=== PATIENT | male | born 1960 | race Caucasian/White ===

== ENCOUNTER 2020-01-31 11:05 | Inpatient (IN) | payer MEDICAID ==
[~2020-01-31] VITALS: Ht 180.3 cm; Wt 95.5 kg
[~2020-01-31 11:05] MED LIST: AMOX125S7; LORA0.5T11 PO; [UNRECOGNIZED DRUG - CODE]
[2020-01-31] MEDS ORDERED: SODIUM CHLORIDE 0.9% 500 ML IVB ONE (11:53)
[2020-01-31] MEDS ORDERED: PANTOPRAZOLE 40 MG/10 ML VIAL INJ IV STA (11:53)
[2020-01-31] MEDS ORDERED: ONDANSETRON HCL 4 MG/2 ML VIAL IV ONE (12:00)
[2020-01-31] MEDS ORDERED: MORPHINE SULFATE 4 MG/ML SYR/VIAL IV ONE (12:00)
[2020-01-31 12:18] LABS: Urine Bacteria NONE SEEN /hpf (None Seen); Urine Blood Negative /uL (Negative); Urine Mucus FEW (None Seen); Urine Specific Gravity 1.024 (1.001-1.035); Urine Sperm PRESENT /hpf (None Seen); Urine WBC 2 /hpf (0 - 3)
[2020-01-31 12:20] LABS: Basophils # (auto) 0.1 10 ^3/uL (0-0.2); Basophils % (auto) 0.3 % (0.0-2.0); Eosinophils # (auto) 0 10 ^3/uL (0-0.8); Eosinophils % (auto) 0.1 % (0.0-7.0); Hemoglobin 11.8 g/dL (13.5-17.5); Lymphocytes # (auto) 1.2 10 ^3/uL (0.4-5.4); Lymphocytes % (auto) 6.1 % (10.0-50.0); Mean Corpuscular Hemoglobin 30.1 pg (28.0-32.0); Mean Corpuscular Hgb Conc. 33.6 g/dL (32.0-36.0); Mean Corpuscular Volume 89.7 fL (80.0-100.0); Monocytes # (auto) 0.9 10 ^3/uL (0-1.3); Monocytes % (auto) 4.8 % (0.0-12.0); Neutrophils # (auto) 17.2 10 ^3/uL (1.6-8.6); Neutrophils % (auto) 88.7 % (37.0-80.0); Platelet Count (auto) 305 10^3/uL (140-450); Red Cell Distribution Width 13.3 % (11.8-14.3); White Blood Cell 19.4 10^3/uL (4.4-10.8)
[2020-01-31 12:45] LABS: Albumin 3.2 g/dL (3.4-5.0); BUN/Creatinine Ratio 35.4; Calcium 8.6 mg/dL (8.5-10.1); Potassium 3.9 mmol/L (3.5-5.1)
[2020-01-31 12:47] LABS: Bilirubin, Total 0.7 mg/dL (0.2-1.0); Total Protein 6.6 g/dL (6.4-8.2)
[2020-01-31] MEDS ORDERED: MORPHINE SULF INJ 2 MG/ML SYRINGE 1ML IV PRN (14:15)
[2020-01-31] MEDS ORDERED: SODIUM CHLORIDE 0.9% 1,000 ML IV ONE (14:15)
[2020-01-31] MEDS ORDERED: NITROGLYCERIN 0.4 MG SL TAB SL PRN (14:15)
[2020-01-31] MEDS: SODIUM CHLORIDE 0.9% 1,000 ML IV SCH ×2 (16:04→21:44)
[2020-01-31 16:09] VITALS: BP 130/81
[2020-01-31 17:00] VITALS: BP 130/81
[2020-01-31] MEDS: MORPHINE SULF INJ 2 MG/ML SYRINGE 1ML IV PRN (17:23)
[2020-01-31] MEDS ORDERED: cefTRIAXone 1GM/50ML D5W 50 ML IV ONE (17:45)
[2020-01-31] MEDS ORDERED: cefTRIAXone 1GM/50ML D5W 50 ML IV SCH (17:45)
[2020-01-31] MEDS: PANTOPRAZOLE 40 MG/10 ML VIAL INJ IV SCH (21:37)
[2020-01-31] MEDS: diphenhdrAMINE HCL 25 MG CAP PO PRN (21:37)
[2020-01-31 21:38] VITALS: BP 118/75
[2020-01-31] MEDS: metroNIDAZOLE 500MG/100ML 100 ML IV SCH (21:38)
[2020-02-01] MEDS: MORPHINE SULF INJ 2 MG/ML SYRINGE 1ML IV PRN ×3 (01:13→21:13)
[2020-02-01] MEDS: ONDANSETRON HCL 4 MG/2 ML VIAL IV PRN ×2 (01:18→09:55)
[2020-02-01 05:07] VITALS: BP 133/67
[2020-02-01 05:13] LABS: Eosinophils # (auto) 0.1 10 ^3/uL (0-0.8); Eosinophils % (auto) 0.6 % (0.0-7.0); Monocytes % (auto) 6.4 % (0.0-12.0); Red Cell Distribution Width 13.4 % (11.8-14.3)
[2020-02-01 05:15] LABS: Basophils # (auto) 0 10 ^3/uL (0-0.2); Basophils % (auto) 0.2 % (0.0-2.0); Lymphocytes # (auto) 4.4 10 ^3/uL (0.4-5.4); Lymphocytes % (auto) 27.5 % (10.0-50.0); Mean Corpuscular Hemoglobin 30.3 pg (28.0-32.0); Mean Corpuscular Hgb Conc. 33.4 g/dL (32.0-36.0); Mean Corpuscular Volume 90.7 fL (80.0-100.0); Neutrophils # (auto) 10.4 10 ^3/uL (1.6-8.6); Neutrophils % (auto) 65.3 % (37.0-80.0); Nucleated Red Blood Cells % 0.1 %; Platelet Count (auto) 236 10^3/uL (140-450); Red Blood Cells 2.65 10^6/uL (4.5-5.90); White Blood Cell 15.9 10^3/uL (4.4-10.8)
[2020-02-01 05:35] LABS: Potassium 4.1 mmol/L (3.5-5.1)
[2020-02-01 05:40] LABS: Albumin 2.6 g/dL (3.4-5.0); BUN/Creatinine Ratio 27.3; Bilirubin, Total 0.7 mg/dL (0.2-1.0); Calcium 7.7 mg/dL (8.5-10.1); Total Protein 5.2 g/dL (6.4-8.2)
[2020-02-01] MEDS: metroNIDAZOLE 500MG/100ML 100 ML IV SCH ×3 (05:45→21:13)
[2020-02-01 09:00] VITALS: BP 108/77
[2020-02-01] MEDS: cefTRIAXone 1GM/50ML D5W 50 ML IV SCH (09:55)
[2020-02-01] MEDS: SODIUM CHLORIDE 0.9% 1,000 ML IV SCH ×2 (09:55→17:08)
[2020-02-01] MEDS: PANTOPRAZOLE 40 MG/10 ML VIAL INJ IV SCH (09:55)
[2020-02-01 13:00] VITALS: BP 123/70
[2020-02-01 13:21] LABS: Hematocrit 20.4 % (41.0-53.0); Hemoglobin 7.3 g/dL (13.5-17.5)
[2020-02-01 17:00] VITALS: BP 120/66
[2020-02-01] MEDS: PANTOPRAZOLE 40mg/50ML NS AE 50 ML IV SCH ×3 (17:07→22:56)
[2020-02-01 17:57] VITALS: BP 132/72
[2020-02-01 19:48] LABS: Hematocrit 22.5 % (41.0-53.0)
[2020-02-01 19:50] LABS: Hemoglobin 7.7 g/dL (13.5-17.5)
[2020-02-01] MEDS: diphenhdrAMINE HCL 25 MG CAP PO PRN (21:14)
[2020-02-01 22:00] VITALS: BP 142/82
[2020-02-01 22:37] LABS: INR 1.07 (0.9-1.15); Partial Thromboplastin Time 24.6 sec (23.64-32.05)
[2020-02-02] MEDS: SODIUM CHLORIDE 0.9% 1,000 ML IV SCH ×3 (00:14→16:00)
[2020-02-02] MEDS: PANTOPRAZOLE 40mg/50ML NS AE 50 ML IV SCH ×4 (03:09→19:34)
[2020-02-02] MEDS: ONDANSETRON HCL 4 MG/2 ML VIAL IV PRN (04:37)
[2020-02-02] MEDS: MORPHINE SULF INJ 2 MG/ML SYRINGE 1ML IV PRN ×2 (04:41→20:43)
[2020-02-02 04:43] VITALS: BP 142/80
[2020-02-02] MEDS: metroNIDAZOLE 500MG/100ML 100 ML IV SCH ×3 (05:34→21:54)
[2020-02-02 06:34] LABS: Basophils # (auto) 0.1 10 ^3/uL (0-0.2); Basophils % (auto) 0.7 % (0.0-2.0); Eosinophils # (auto) 0.2 10 ^3/uL (0-0.8); Hemoglobin 7.9 g/dL (13.5-17.5); Lymphocytes # (auto) 2.3 10 ^3/uL (0.4-5.4); Red Cell Distribution Width 13.9 % (11.8-14.3); White Blood Cell 10.3 10^3/uL (4.4-10.8)
[2020-02-02 06:42] LABS: Eosinophils % (auto) 1.5 % (0.0-7.0); Hematocrit 23.2 % (41.0-53.0); Lymphocytes % (auto) 22.5 % (10.0-50.0); Mean Corpuscular Hgb Conc. 34.2 g/dL (32.0-36.0); Mean Corpuscular Volume 90.6 fL (80.0-100.0); Monocytes # (auto) 0.7 10 ^3/uL (0-1.3); Monocytes % (auto) 7.1 % (0.0-12.0); Neutrophils # (auto) 7.1 10 ^3/uL (1.6-8.6); Neutrophils % (auto) 68.2 % (37.0-80.0); Nucleated Red Blood Cells % 0.1 %; Platelet Count (auto) 233 10^3/uL (140-450); Red Blood Cells 2.56 10^6/uL (4.5-5.90)
[2020-02-02 06:53] LABS: Potassium 3.9 mmol/L (3.5-5.1)
[2020-02-02 07:33] LABS: BUN/Creatinine Ratio 11.7; Calcium 8.1 mg/dL (8.5-10.1); Magnesium 1.9 mg/dL (1.6-2.6)
[2020-02-02 08:43] VITALS: BP 122/75
[2020-02-02] MEDS: cefTRIAXone 1GM/50ML D5W 50 ML IV SCH (10:03)
[2020-02-02 13:00] VITALS: BP 123/74
[2020-02-02 15:08] LABS: Urine Bacteria NONE SEEN /hpf (None Seen); Urine Blood Negative /uL (Negative); Urine Mucus FEW (None Seen); Urine Specific Gravity 1.004 (1.001-1.035); Urine WBC 1 /hpf (0 - 3)
[2020-02-02 17:00] VITALS: BP 126/65
[2020-02-02 19:22] LABS: Hemoglobin 7.5 g/dL (13.5-17.5)
[2020-02-02 19:43] LABS: Hematocrit 21.6 % (41.0-53.0)
[2020-02-02] MEDS: diphenhdrAMINE HCL 25 MG CAP PO PRN (20:42)
[2020-02-02 21:50] VITALS: BP 143/85
[2020-02-03] MEDS: SODIUM CHLORIDE 0.9% 1,000 ML IV SCH ×4 (01:05→20:37)
[2020-02-03] MEDS: PANTOPRAZOLE 40mg/50ML NS AE 50 ML IV SCH ×4 (01:11→15:45)
[2020-02-03 04:48] VITALS: BP 137/86
[2020-02-03] MEDS: metroNIDAZOLE 500MG/100ML 100 ML IV SCH ×2 (05:40→06:47)
[2020-02-03 07:16] LABS: Basophils # (auto) 0 10 ^3/uL (0-0.2); Basophils % (auto) 0.4 % (0.0-2.0); Eosinophils # (auto) 0.2 10 ^3/uL (0-0.8); Hemoglobin 7.5 g/dL (13.5-17.5); Monocytes # (auto) 0.6 10 ^3/uL (0-1.3); Monocytes % (auto) 5.9 % (0.0-12.0); Red Cell Distribution Width 14.1 % (11.8-14.3); White Blood Cell 10.8 10^3/uL (4.4-10.8)
[2020-02-03 07:20] LABS: Hematocrit 21.6 % (41.0-53.0); Lymphocytes % (auto) 18.1 % (10.0-50.0); Mean Corpuscular Hemoglobin 31.4 pg (28.0-32.0); Mean Corpuscular Hgb Conc. 34.6 g/dL (32.0-36.0); Neutrophils % (auto) 73.6 % (37.0-80.0); Platelet Count (auto) 295 10^3/uL (140-450); Red Blood Cells 2.37 10^6/uL (4.5-5.90)
[2020-02-03 07:48] LABS: Calcium 8.5 mg/dL (8.5-10.1); Magnesium 2.2 mg/dL (1.6-2.6); Potassium 3.6 mmol/L (3.5-5.1)
[2020-02-03 07:50] LABS: BUN/Creatinine Ratio 9.5
[2020-02-03] MEDS ORDERED: NALOXONE HCL 0.4 MG/ML VIAL ONE (08:28)
[2020-02-03] MEDS ORDERED: LIDOCAINE VISCOUS 2% 15ML UD ONE (08:28)
[2020-02-03] MEDS ORDERED: FLUMAZENIL 0.1 MG/ML INJ 10ML MDV IV ONE (08:28)
[2020-02-03] MEDS ORDERED: SODIUM CHLORIDE LOCK 10 ML ONE (08:28)
[2020-02-03] MEDS ORDERED: diphenhdrAMINE HCL 50 MG/1 ML VL ONE (08:30)
[2020-02-03] MEDS: cefTRIAXone 1GM/50ML D5W 50 ML IV SCH (09:03)
[2020-02-03 09:08] VITALS: BP 139/88
[2020-02-03] MEDS: fentaNYL CITRATE 100 MCG/2 ML VL ONE ×3 (10:02→10:05)
[2020-02-03] MEDS: MIDAZOLAM HCL 5 MG/ML-1ML VIAL ONE ×4 (10:02→10:07)
[2020-02-03] MEDS: SUCRALFATE 1 GM/10 ML ORAL SUSP PO SCH ×3 (12:23→21:23)
[2020-02-03 12:24] VITALS: BP 116/59
[2020-02-03 16:49] VITALS: BP 142/77
[2020-02-03] MEDS: PANTOPRAZOLE 40 MG TAB PO SCH (21:23)
[2020-02-03] MEDS: diphenhdrAMINE HCL 25 MG CAP PO PRN (21:24)
[2020-02-03 22:00] VITALS: BP 116/65
[2020-02-04] MEDS: SODIUM CHLORIDE 0.9% 1,000 ML IV SCH ×3 (01:40→14:58)
[2020-02-04 05:41] VITALS: BP 105/58
[2020-02-04] MEDS: SUCRALFATE 1 GM/10 ML ORAL SUSP PO SCH ×3 (06:40→16:35)
[2020-02-04 09:00] VITALS: BP 135/77
[2020-02-04 10:20] LABS: Basophils # (auto) 0 10 ^3/uL (0-0.2); Basophils % (auto) 0.3 % (0.0-2.0); Eosinophils # (auto) 0.2 10 ^3/uL (0-0.8); Lymphocytes # (auto) 1.8 10 ^3/uL (0.4-5.4); Mean Corpuscular Hgb Conc. 33.5 g/dL (32.0-36.0); Monocytes # (auto) 0.8 10 ^3/uL (0-1.3); Neutrophils # (auto) 8.8 10 ^3/uL (1.6-8.6); Nucleated Red Blood Cells % 0.2 %; Red Blood Cells 2.48 10^6/uL (4.5-5.90); White Blood Cell 11.6 10^3/uL (4.4-10.8)
[2020-02-04 10:22] LABS: Eosinophils % (auto) 1.6 % (0.0-7.0); Hematocrit 23.1 % (41.0-53.0); Hemoglobin 7.7 g/dL (13.5-17.5); Lymphocytes % (auto) 15.5 % (10.0-50.0); Mean Corpuscular Hemoglobin 31.2 pg (28.0-32.0); Mean Corpuscular Volume 93.1 fL (80.0-100.0); Monocytes % (auto) 6.6 % (0.0-12.0); Platelet Count (auto) 370 10^3/uL (140-450); Red Cell Distribution Width 14.3 % (11.8-14.3)
[2020-02-04 10:25] LABS: BUN/Creatinine Ratio 10.4; Calcium 8.3 mg/dL (8.5-10.1); Magnesium 2.3 mg/dL (1.6-2.6); Potassium 3.2 mmol/L (3.5-5.1)
[2020-02-04] MEDS: PANTOPRAZOLE 40 MG TAB PO SCH (11:54)
[2020-02-04 13:00] VITALS: BP 123/71
[2020-02-04] MEDS ORDERED: ALPRAZolam 0.5 MG TAB PO ONE (13:00)
[2020-02-04] MEDS ORDERED: CARVEDILOL 3.125 MG TAB PO SCH (15:34)
[2020-02-04 16:37] VITALS: BP 123/71
[2020-02-04 17:05] VITALS: BP 125/73
== END 2020-02-04 18:33 | disposition home or self-care (01) | DRG 241 ==
LOC: ER 11:05 → EDUNIT# 11:05 → EDBD 11:05 → TELE 11:06 → TELE-CENTR 15:46
PROVIDERS: ADMIT Nurse Practitioner Acute Care; ATTEND Internal Medicine
PROC: 30233N1 Transfusion of Nonautologous Red Blood Cells into Peripheral Vein, Percutaneous Approach (ICD-10-PCS; principal; 2020-02-01)
PROC: 0DB68ZX Excision of Stomach, Via Natural or Artificial Opening Endoscopic, Diagnostic (ICD-10-PCS; 2020-02-03)
PROC: 0DB88ZX Excision of Small Intestine, Via Natural or Artificial Opening Endoscopic, Diagnostic (ICD-10-PCS; 2020-02-03)
DX: K29.71 Gastritis, unspecified, with bleeding (principal); D62 Acute posthemorrhagic anemia; K26.4 Chronic or unspecified duodenal ulcer with hemorrhage; F41.9 Anxiety disorder, unspecified; K42.9 Umbilical hernia without obstruction or gangrene; D72.829 Elevated white blood cell count, unspecified; T39.395A Adverse effect of other nonsteroidal anti-inflammatory drugs [NSAID], initial encounter; Z87.11 Personal history of peptic ulcer disease; Z79.1 Long term (current) use of non-steroidal anti-inflammatories (NSAID); K57.30 Diverticulosis of large intestine without perforation or abscess without bleeding; Z88.6 Allergy status to analgesic agent; Z79.899 Other long term (current) drug therapy; Z80.9 Family history of malignant neoplasm, unspecified
CPT/HCPCS: 36415; 43239; 51702; 71045; 74176; 80048; 80053; 81001; 82150; 82270; 83690; 83735; 84443; 85014; 85018; 85025; 85610; 85730; 86850; 86900; 86901; 86920; 87040; 87045; 87086; 87427; 93005; 93306; 96361; 96374; 96375; C9113; G0378; J0696; J2250; J2405; J3490